=== PATIENT | male | born 1975 | race Caucasian/White ===

== ENCOUNTER 2016-08-08 17:36 | Emergency (ER) | payer MEDICAID ==
[~2016-08-08 17:36] MED LIST: ATIVAN-DPS1 MG PO; LACTULOSE10 GM/15 M PO; LASIX DPS40 MG PO; NEURONTIN DPS300 MG PO; OXY-CONTIN10 MG PO; PROTONIX20 MG PO; SEROQUEL25 MG PO; THERA1 EACH PO; ZOLOFT DPS50 MG PO
--- NOTE | 2016-08-09 05:25 | ER ---
ADMIT: 08/08/2016 RM/LOC: ER [facility] MR#: [id number] [address] [address] [address] [place] [place] [address] Emergency Room Report SEX: M AGE: 40 : 1975 DATE: 08/08/2016 HISTORY OF PRESENT ILLNESS: The patient was signed out to me. Please refer to the previous physician's notes as the main notes. The patient is a 40-year- old male with the chief complaint of cirrhosis, waiting for liver transplant, who was brought here because of altered mental status. Patient had some visual and auditory hallucination. The patient states he has not been using his lactulose for the last 3 days. In the ER, patient received lactulose, lab works were done. The patient was afebrile and there were no signs of trauma and the patient was signed out to me to follow up with the lab works. Allegedly, per partner and per family, patient used methamphetamine in the last few days. PHYSICAL EXAMINATION: VITAL SIGNS: When I saw the patient, his vitals were normal. He was afebrile, no agitation. GENERAL: Alert, oriented to person, place, and time, sitting in bed, in no distress, answering all the questions and cooperative. LABORATORY DATA: Ammonia level was 31, and the patient denied using any meth or using any medication for ADD or ADHD, but the family in room they brought me outside and they all told me that the patient used methamphetamine in the last few days. White BC was 3.8, hemoglobin of 12.2, and urine tox was positive for methamphetamine and benzodiazepine. Patient's ammonia was 31. Knowing the patient used methamphetamine, CK was checked was 989. Patient already received 0.5 L of fluid of normal saline. I also gave another 1 L of IV fluid, and after that, the CK was rechecked, which dropped down to 753. PLAN: The patient was reexamined, did not develop any new symptoms. The patient is stable to be discharged to home and follow up with the primary doctor as needed. The patient also had positive ethanol level of 13 in the ER. Ronn Lee MD/ macrina JOB #: [id number] CC: Mckay Haley MD, Attending Physician Alfa Singh MD, Family Physician
--- NOTE | 2016-08-09 10:31 | NUR ---
Pt triggered as a high ED user. Attempted to contact pt. No answer, voice mail message left.
[2016-12-22] MEDS ORDERED: [UNRECOGNIZED DRUG - OTHER] PO (13:10)
[2016-12-22] MEDS ORDERED: VITAMIN B1100 MG PO (13:11)
[2016-12-22] MEDS ORDERED: FOLVITE-DPS1 MG PO (13:11)
[2016-12-22] MEDS ORDERED: LAMICTAL DPS100 MG PO (13:13)
[2016-12-22] MEDS ORDERED: DAILY MULTIPLE1 EAC1 PO (13:13)
== END 2016-08-08 22:45 | disposition home or self-care (01) ==
LOC: ER 17:36
DX: R41.82 Altered mental status, unspecified (principal); M62.82 Rhabdomyolysis; F19.10 Other psychoactive substance abuse, uncomplicated; F17.210 Nicotine dependence, cigarettes, uncomplicated; Z88.5 Allergy status to narcotic agent; Z88.8 Allergy status to other drugs, medicaments and biological substances; Z79.899 Other long term (current) drug therapy

== ENCOUNTER 2016-11-15 20:04 | Emergency (ER) | payer MEDICAID ==
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
[2016-12-22] MEDS ORDERED: [UNRECOGNIZED DRUG - OTHER] PO (13:10)
[2016-12-22] MEDS ORDERED: VITAMIN B1100 MG PO (13:11)
[2016-12-22] MEDS ORDERED: FOLVITE-DPS1 MG PO (13:11)
[2016-12-22] MEDS ORDERED: LAMICTAL DPS100 MG PO (13:13)
[2016-12-22] MEDS ORDERED: DAILY MULTIPLE1 EAC1 PO (13:13)
== END 2016-11-15 23:00 | disposition home or self-care (01) ==
LOC: ER 20:04
DX: S60.212A Contusion of left wrist, initial encounter (principal); F10.129 Alcohol abuse with intoxication, unspecified; Z90.49 Acquired absence of other specified parts of digestive tract; Z88.5 Allergy status to narcotic agent; Z79.899 Other long term (current) drug therapy; V48.6XXA Car passenger injured in noncollision transport accident in traffic accident, initial encounter